=== PATIENT | male | born 1985 | race Caucasian/White ===

== ENCOUNTER 2016-10-11 23:55 | Emergency (ER) | payer SELFPAY ==
[~2016-10-11] VITALS: Ht 177.8 cm; Wt 81.5 kg
[~2016-10-11 23:55] MED LIST: CEPH500T PO
[2016-10-11 23:58] VITALS: BP 142/86; PULSE 102; RESP 18; TEMP 97.5; O2SAT 96
--- NOTE | 2016-10-12 01:28 | PD ---
HPI Chief Complaint: Psychiatric Symptoms Time Seen by Provider: 01:15 Travel History International Travel<30 days: No Contact w/Intl Traveler<30days: No Traveled to known affect area: No History of Present Illness HPI 31-year-old male presents voluntarily requesting psychiatric evaluation. He reports over the past 3 weeks has been increasingly depressed, having suicidal thoughts. Today he felt more depressed than he says that he sat in the road for some time feeling a desire to kill himself. He comes here for evaluation of this. He reports that symptoms seem to stem from his relapsing on IV drug use over the past year. He has been using heroin, Dilaudid, crack. He also reports that his girlfriend broke up with him a few months ago and started going out with a friend of his from [employer]. He admits to drug use today. Denies any recent alcohol use. Denies any medical complaints at this time. PFSH Past Medical History Asthma: No Diminished Hearing: No Gastrointestinal Disorders: Yes (GASTRITIS: ENDOSCOPY UPPER: 2012) GERD: Yes Past Surgical History Surgical History: No Previous Surgery Social History Alcohol Use: No Tobacco Use: Yes (10/07 PPD) Substance Use: Yes (OPIATES AND CRACK COCAINE) Allergies-Medications (Allergen,Severity, Reaction): Coded Allergies: No Known Allergies (Verified , 10/12/16) Reported Meds & Prescriptions Reported Meds & Active Scripts Active No Active Prescriptions or Reported Medications Review of Systems Except as stated in HPI: all other systems reviewed are Neg Physical Exam Narrative GENERAL: Well-developed well-nourished male in no acute distress SKIN: Warm and dry. HEAD: Atraumatic. Normocephalic. EYES: Pupils equal and round. No scleral icterus. No injection or drainage. ENT: No nasal bleeding or discharge. Mucous membranes pink and moist. NECK: Trachea midline. No JVD. CARDIOVASCULAR: Regular rate and rhythm. No murmur appreciated. RESPIRATORY: No accessory muscle use. Clear to auscultation. Breath sounds equal bilaterally. GASTROINTESTINAL: Abdomen soft, non-tender, nondistended. MUSCULOSKELETAL: No obvious deformities. NEUROLOGICAL: Awake and alert. No obvious cranial nerve deficits. Motor grossly within normal limits. Normal speech. PSYCHIATRIC: Appropriate mood and affect; insight and judgment normal. Data Data Last Documented VS Vital Signs Date Time Temp Pulse Resp B/P Pulse Ox O2 Delivery O2 Flow Rate FiO2 10/11/16 23:58 97.5 102 18 142/86 96 Orders Complete Blood Count With Diff (10/12/16 00:57) Comprehensive Metabolic Panel (10/12/16 00:57) Drug Screen, Random Urine (10/12/16 00:57) Alcohol (Ethanol) (10/12/16 00:57) Salicylates (Aspirin) (10/12/16 00:57) Tylenol (Acetaminophen) (10/12/16 00:57) Psych Screen (10/12/16 00:57) Labs Laboratory Tests Test 10/12/16 01:15 White Blood Count 12.5 TH/MM3 Red Blood Count 4.53 MIL/MM3 Hemoglobin 13.6 GM/DL Hematocrit 40.2 % Mean Corpuscular Volume 88.7 FL Mean Corpuscular Hemoglobin 30.1 PG Mean Corpuscular Hemoglobin 33.9 % Concent Red Cell Distribution Width 13.4 % Platelet Count 186 TH/MM3 Mean Platelet Volume 6.3 FL Neutrophils (%) (Auto) 68.2 % Lymphocytes (%) (Auto) 18.1 % Monocytes (%) (Auto) 12.6 % Eosinophils (%) (Auto) 0.6 % Basophils (%) (Auto) 0.5 % Neutrophils # (Auto) 8.5 TH/MM3 Lymphocytes # (Auto) 2.3 TH/MM3 Monocytes # (Auto) 1.6 TH/MM3 Eosinophils # (Auto) 0.1 TH/MM3 Basophils # (Auto) 0.1 TH/MM3 CBC Comment AUTO DIFF Sodium Level 138 MEQ/L Potassium Level 3.6 MEQ/L Chloride Level 101 MEQ/L Carbon Dioxide Level 27.2 MEQ/L Anion Gap 10 MEQ/L Blood Urea Nitrogen 21 MG/DL Creatinine 1.44 MG/DL Estimat Glomerular Filtration 58 ML/MIN Rate Random Glucose 103 MG/DL Calcium Level 9.1 MG/DL Total Bilirubin 0.9 MG/DL Aspartate Amino Transf 16 U/L (AST/SGOT) Alanine Aminotransferase 23 U/L (ALT/SGPT) Alkaline Phosphatase 71 U/L Total Protein 7.6 GM/DL Albumin 4.4 GM/DL Salicylates Level LESS THAN 1.7 MG/DL Acetaminophen Level LESS THAN 2.0 MCG/ML Ethyl Alcohol Level LESS THAN 3 MG/DL MDM Medical Decision Making Medical Screen Exam Complete: Yes Emergency Medical Condition: Yes Medical Record Reviewed: Yes Differential Diagnosis Substance induced mood disorder, major depressive disorder, depressive disorder not otherwise specified, acute psychosis, adjustment reaction, homelessness Narrative Course This is a 31-year-old male with history of IV drug abuse who presents with 3 weeks of increasing depression, suicidal ideation. Mental health screening discussed with the patient. Psychiatric screen ordered. The patient is medically cleared for psychiatric disposition. Scripts No Active Prescriptions or Reported Meds Michael Aburto Oct 12, 2016 01:28
[2016-10-12 01:53] LABS: AUTOMATED NEUTROPHIL # 8.5 TH/MM3 (1.8-7.7); BASOPHIL # 0.1 TH/MM3 (0-0.2); BASOPHIL % 0.5 % (0.0-2.0); EOSINOPHIL # 0.1 TH/MM3 (0-0.4); EOSINOPHIL % 0.6 % (0.0-4.0); HEMATOCRIT 40.2 % (39.0-51.0); LYMPH % 18.1 % (9.0-44.0); LYMPHOCYTE # 2.3 TH/MM3 (1.0-4.8); MEAN CELL VOLUME 88.7 FL (80.0-100.0); MEAN CORPUSCULAR HEMOGLOBIN 30.1 PG (27.0-34.0); MEAN CORPUSCULAR HGB CONC 33.9 % (32.0-36.0); MONO % 12.6 % (0.0-8.0); NEUT % 68.2 % (16.0-70.0); PLATELET COUNT 186 TH/MM3 (150-450); RED BLOOD COUNT 4.53 MIL/MM3 (4.50-5.90); RED CELL DISTRIBUTION WIDTH 13.4 % (11.6-17.2); WHITE BLOOD COUNT 12.5 TH/MM3 (4.0-11.0)
[2016-10-12 01:57] LABS: HEMO FLAGS AUTO DIFF
[2016-10-12 02:11] LABS: ALT (GPT) 23 U/L (12-78); ANION GAP 10 MEQ/L (5-15); AST (GOT) 16 U/L (15-37); BICARBONATE 27.2 MEQ/L (21.0-32.0); BLOOD UREA NITROGEN 21 MG/DL (7-18); CHLORIDE 101 MEQ/L (98-107); GLOMERULAR FILTRATION RATE 58 ML/MIN (>89); POTASSIUM 3.6 MEQ/L (3.5-5.1); SODIUM (NA) 138 MEQ/L (136-145)
[2016-10-12 02:13] LABS: ACETAMINOPHEN LESS THAN 2.0 MCG/ML (10.0-30.0); ALKALINE PHOSPHATASE 71 U/L (45-117); TOTAL BILIRUBIN ADULT 0.9 MG/DL (0.2-1.0)
[2016-10-12 05:15] LABS: SCAN/DIFF AUTO DIFF CONFIRMED
[2016-10-12 06:39] LABS: AMPHETAMINE, URINE NEG (NEG); BARBITURATES, URINE NEG (NEG); COCAINE, URINE POS (NEG)
[2016-10-12 06:40] VITALS: BP 120/69; PULSE 93; RESP 16; O2SAT 95
== END 2016-10-12 09:07 | disposition home or self-care (01) ==
LOC: NEPA 23:55
DX: R45.851 Suicidal ideations (principal); K21.9 Gastro-esophageal reflux disease without esophagitis
CPT/HCPCS: 80053; 80307; 80320; 80329; 85025; 99283; G0480